=== PATIENT | male | born 1975 | race Caucasian/White ===

== ENCOUNTER 2016-11-16 16:40 | Emergency (ER) | payer SELFPAY ==
--- NOTE | 2016-11-16 18:20 | ED NURSING NOTES ---
Clinical Report - Nurses [facility] [address] [place] [address] 11/16/2016 16:43 Patient: ARI ALBERTO TRIAGE Triage time 16:50. Acuity: LEVEL 3. Chief Complaint: RIGHT LOWER TOOTHACHE. Alert. No acute distress. --16:54 Nanda Feldman R.N. 16:50 11/16/16. BP: 158/89. HR: 89. RR: 18. O2 saturation: 99%. Temp: 98.1 F. Pain level now: 01/25. --16:54 Nanda Feldman R.N. 16:50 11/16/16. BP: 158/89. HR: 89. RR: 18. O2 saturation: 99%. Temp: 98.1 F. Pain level now: 01/25. --16:54 Nanda Feldman R.N. Weight: 85.7 kg stated. Height/Length: 71 inches Per Patient. BMI: 26.4. --16:52 Nanda Feldman R.N. Medications None. --16:52 Nanda Feldman R.N. Medication/allergy information source: the patient. --16:54 Nanda Feldman R.N. Allergies PCN. --16:51 Nanda Feldman R.N. Amoxicillin. Keflex. --16:51 Nanda Feldman R.N. History Arrived by private vehicle. Historian: patient. No primary care physician. Onset. (3 - 4 days ago worse today). He has had facial pain. He has had swelling of the jaw. He has had mild swelling of the right face. 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 PAST MEDICAL HX: Negative. Immunizations: up-to-date. SURGERY HX: No history of previous surgery. SOCIAL HX: Light tobacco smoker (cigarette)- less than 1/2 a pack per day. No alcohol use or drug use. FALL RISK ASSESSMENT: Fall risk assessment completed. No fall risk identified. NUTRITIONAL RISK ASSESSMENT: The nutritional risk assessment revealed no deficiencies. FUNCTIONAL ASSESSMENT: Functional assessment: no impairments noted. LEARNING NEEDS ASSESSMENT: The learning needs assessment revealed no barriers. SKIN INTEGRITY ASSESSMENT: Skin integrity risk assessment completed. No skin integrity risk identified. --16:54 Nanda Feldman R.N. Interventions ID band on patient. To room. --16:54 Nanda Feldman R.N. PHYSICAL ASSESSMENT Ambulatory to room. GENERAL / NEURO / PSYCH: Alert. Oriented X 4. Appears in pain. HEENT: Dental tenderness. Mucous membranes are pink. RESPIRATORY: Respirations not labored. CVS: Capillary refill less than 2 seconds. SKIN: Skin is warm and dry. Normal skin turgor. --16:55 Nanda Feldman R.N. NURSING PROGRESS NOTES Head of bed elevated. Two patient identifiers checked. Call light placed in reach. Side rails up x 1. Bed placed in lowest position. Brakes of bed on. Patient ready for evaluation. --16:55 Nanda Feldman R.N. 17:27 11/16/2016 Toradol (Ketorolac Tromethamine) IM 60 mg given. Given in the left gluteus precious. Allergies verified and confirmed 5 rights. --17:42 Kimberly Chandra R.N. 17:27 11/16/2016 Morphine (Morphine Sulfate (PF)) IM 8 mg given. Given in the right gluteus precious. Allergies verified, confirmed 5 rights and sedative warning given to the patient. --17:42 Kimberly Chandra R.N. 18:19 11/16/2016 Acyclovir PO 800 mg given. Allergies verified and confirmed 5 rights. --18:34 Nanda Feldman R.N. 18:19 11/16/2016 Clindamycin PO 300 mg given. Allergies verified and confirmed 5 rights. --18:34 Nanda Feldman R.N. DISPOSITION / DISCHARGE 18:25. Condition at departure: improved. No learning barriers present. Discharge instructions provided and reviewed with the patient. Reviewed medication(s) side effects, precautions, dosing and course information. Prescription(s) given to the patient. Patient verbalized understanding. Written instructions provided in [place]. The patient was discharged home and accompanied by high speed printer operator. He left the Emergency Department ambulatory and via private vehicle. Seat Trimmer driving. Medication list reviewed and validated. --18:36 Nanda Feldman R.N. 18:34 11/16/16. BP: 156/78. HR: 79. RR: 20. O2 saturation: 98%. Temp: deferred. Pain level now: 10/25. 16:50 11/16/16. BP: 158/89. HR: 89. RR: 18. O2 saturation: 99%. Temp: 98.1 F. Pain level now: 01/25. --18:36 Nanda Feldman R.N. Locked/Released at 11/16/2016 18:39 by Nanda Feldman R.N.
--- NOTE | 2016-11-16 18:20 | ED CLINICAL REPORT ---
Clinical Report - Physicians/[facility] [address] [place] [address] 11/16/2016 16:43 Patient: ARI ALBERTO Time Seen: 1701. Arrived- By private vehicle. Historian- patient. HISTORY OF PRESENT ILLNESS Chief Complaint: SKIN RASH. This started past few days and is still present. It was abrupt in onset and has been constant but is not gone now. It is described as painful. It has been located on the right chin. A possible cause has been identified (shingles). (hx of chicken pox as a child. states he had a tooth ache first before this all started. no recent dental procedures.). Similar symptoms previously: None. Recent medical care: Not recently seen/assessed. REVIEW OF SYSTEMS No fever, chills or joint pain. All systems otherwise negative, except as recorded above. PAST HISTORY See nurses notes. Tetanus immunization status is up-to-date. SOCIAL HISTORY Smoker- current status unknown. No alcohol use or drug use. No recent travel. Is a local resident. ADDITIONAL NOTES The nursing notes have been reviewed. PHYSICAL EXAM Vital Signs: 11/16/2016 16:50 BP: 158/89. HR: 89. RR: 18. O2 saturation: 99%. Temp: 98.1 F. Pain level now: 9/10. Oxygen saturation normal. Appearance: Alert. Oriented X3. No acute distress. Eyes: Pupils equal, round and reactive to light. Conjunctivae and eyelids normal. ENT: Ears normal. Nose normal. Pharynx normal. Neck: Neck supple. No meningeal signs. CVS: Normal heart rate and rhythm. Heart sounds normal. Respiratory: No respiratory distress. Breath sounds normal. Chest nontender. Abdomen: Nontender. No organomegaly. Skin: (vescicular rash to the V3 dermatome. no masses. no other signs of infection. no crepitus.). Extremities: Normal external inspection. Extremities nontender. Neuro: Oriented X 3. No motor deficit. No sensory deficit. PROGRESS AND PROCEDURES Course of Care: the patient is a 41-year-old male presenting for evaluation of right-sided jaw pain. Patient likely with dental infection that has caused a flare up of the varicella-zoster. Patient be treated with antivirals. First is Margie Contreras provided here in the emergency department. Patient also be treated for dental caries. No signs of airway compromise at this time. Patient is stable outpatient candidat No signs of sepsis. Had discussion with the patient in regards to his workup in the emergency department including diagnosis, home care, follow-up, and return precautions. All questions have been answered. The patient expressed understanding of these instructions and was agreeable to them. Disposition: Discharged. Condition: good. CLINICAL IMPRESSION 11/16/2016 16:50 BP: 158/89. HR: 89. RR: 18. O2 saturation: 99%. Temp: 98.1 F. Pain level now: 01/25. Hypertensive. Oxygen saturation normal. Herpes zoster (acute). Dental caries (localized) (acute right mandibular molars). atypical right facial pain. INSTRUCTIONS Warnings: GENERAL WARNINGS: Return or contact your physician immediately if your condition worsens or changes unexpectedly, if not improving as expected, or if other problems arise. Specifically return if pain, vomiting, bleeding, breathing difficulty or fever. Your Current Medications: CONTINUE TAKING THE FOLLOWING MEDICATIONS: None*. Prescription Medications: Clindamycin 300 mg: take 1 capsule orally every 8 hours for 10 days. (disp 30 caps) Valtrex 1000 mg: take 1 tab orally every 8 hours for 7 days. No refills. Substitution is permissible. (disp 30 tabs) Percocet 5 mg/325 mg: take 1-2 tablets orally every 6 hours as needed for pain. Dispense twenty (20). No refill. Substitution is permissible. OTC Medications: Motrin (available over the counter): take according to label instructions. Follow-up: Return to the emergency department as needed. Follow up with a dentist in one week. Reason for referral: recheck today's concerns. Summary of care provided to patient via paper. Follow up with your doctor in three days. Reason for referral: recheck today's concerns. Summary of care provided to patient via paper. Screening today revealed the patient's blood pressure to be in the normal range. The patient should follow up with a primary care provider for blood pressure management. Understanding of the discharge instructions verbalized by patient. (Electronically signed by Venkata Lopez Dr. 11/18/2016 19:43)
--- NOTE | 2016-11-16 18:20 | ED NURSING NOTES ---
Clinical Report - Nurses [facility] [address] [place] [address] 11/16/2016 16:43 Patient: ARI ALBERTO TRIAGE Triage time 16:50. Acuity: LEVEL 3. Chief Complaint: RIGHT LOWER TOOTHACHE. Alert. No acute distress. --16:54 Nanda Feldman R.N. 16:50 11/16/16. BP: 158/89. HR: 89. RR: 18. O2 saturation: 99%. Temp: 98.1 F. Pain level now: 01/25. --16:54 Nanda Feldman R.N. 16:50 11/16/16. BP: 158/89. HR: 89. RR: 18. O2 saturation: 99%. Temp: 98.1 F. Pain level now: 01/25. --16:54 Nanda Feldman R.N. Weight: 85.7 kg stated. Height/Length: 71 inches Per Patient. BMI: 26.4. --16:52 Nanda Feldman R.N. Medications None. --16:52 Nanda Feldman R.N. Medication/allergy information source: the patient. --16:54 Nanda Feldman R.N. Allergies PCN. --16:51 Nanda Feldman R.N. Amoxicillin. Keflex. --16:51 Nanda Feldman R.N. History Arrived by private vehicle. Historian: patient. No primary care physician. Onset. (3 - 4 days ago worse today). He has had facial pain. He has had swelling of the jaw. He has had mild swelling of the right face. 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 PAST MEDICAL HX: Negative. Immunizations: up-to-date. SURGERY HX: No history of previous surgery. SOCIAL HX: Light tobacco smoker (cigarette)- less than 1/2 a pack per day. No alcohol use or drug use. FALL RISK ASSESSMENT: Fall risk assessment completed. No fall risk identified. NUTRITIONAL RISK ASSESSMENT: The nutritional risk assessment revealed no deficiencies. FUNCTIONAL ASSESSMENT: Functional assessment: no impairments noted. LEARNING NEEDS ASSESSMENT: The learning needs assessment revealed no barriers. SKIN INTEGRITY ASSESSMENT: Skin integrity risk assessment completed. No skin integrity risk identified. --16:54 Nanda Feldman R.N. Interventions ID band on patient. To room. --16:54 Nanda Feldman R.N. PHYSICAL ASSESSMENT Ambulatory to room. GENERAL / NEURO / PSYCH: Alert. Oriented X 4. Appears in pain. HEENT: Dental tenderness. Mucous membranes are pink. RESPIRATORY: Respirations not labored. CVS: Capillary refill less than 2 seconds. SKIN: Skin is warm and dry. Normal skin turgor. --16:55 Nanda Feldman R.N. NURSING PROGRESS NOTES Head of bed elevated. Two patient identifiers checked. Call light placed in reach. Side rails up x 1. Bed placed in lowest position. Brakes of bed on. Patient ready for evaluation. --16:55 Nanda Feldman R.N. 17:27 11/16/2016 Toradol (Ketorolac Tromethamine) IM 60 mg given. Given in the left gluteus precious. Allergies verified and confirmed 5 rights. --17:42 Kimberly Chandra R.N. 17:27 11/16/2016 Morphine (Morphine Sulfate (PF)) IM 8 mg given. Given in the right gluteus precious. Allergies verified, confirmed 5 rights and sedative warning given to the patient. --17:42 Kimberly Chandra R.N. 18:19 11/16/2016 Acyclovir PO 800 mg given. Allergies verified and confirmed 5 rights. --18:34 Nanda Feldman R.N. 18:19 11/16/2016 Clindamycin PO 300 mg given. Allergies verified and confirmed 5 rights. --18:34 Nanda Feldman R.N. DISPOSITION / DISCHARGE 18:25. Condition at departure: improved. No learning barriers present. Discharge instructions provided and reviewed with the patient. Reviewed medication(s) side effects, precautions, dosing and course information. Prescription(s) given to the patient. Patient verbalized understanding. Written instructions provided in [place]. The patient was discharged home and accompanied by drop hammer pile driver operator. He left the Emergency Department ambulatory and via private vehicle. Child Support Specialist driving. Medication list reviewed and validated. --18:36 Nanda Feldman R.N. 18:34 11/16/16. BP: 156/78. HR: 79. RR: 20. O2 saturation: 98%. Temp: deferred. Pain level now: 10/25. 16:50 11/16/16. BP: 158/89. HR: 89. RR: 18. O2 saturation: 99%. Temp: 98.1 F. Pain level now: 01/25. --18:36 Nanda Feldman R.N. Locked/Released at 11/16/2016 18:39 by Nanda Feldman R.N.
--- NOTE | 2016-11-16 18:21 | ED ORDER SUMMARY ---
..... Patient: ARI ALBERTO OrderSheet [facility] VisitID: [id number] [place] [address] 41y, M Registration Date/Time: 11/16/2016 ORDER SHEET Weight: 85.7 kg (stated) Allergies: PCN, Amoxicillin, Keflex GENERAL ORDERS: MEDICATION ORDERS: Toradol IM 60 mg (NOW) (17:10 11/16/2016 Mellissa Nagy) (17:42 Kemal R.N.) Morphine IM 8 mg (HIGH ALERT MEDICATION, NOW) (17:10 11/16/2016 Mellissa Nagy) (17:42 Kemal R.N.) Acyclovir PO 800 mg (NOW) (18:15 11/16/2016 Mellissa Nagy) (Ack 18:19 SRoberts R.N.) (18:34 SRoberts R.N.) Clindamycin PO 300 mg (NOW) (18:15 11/16/2016 Mellissa Nagy) (Ack 18:19 SRoberts R.N.) (18:34 SRoberts R.N.) IV FLUIDS: ORDER SHEET NOTES: [Electronically signed by Nanda Feldman R.N. (18:39 11/16/2016)] [Electronically signed by Venkata Lopez Dr. (19:43 11/18/2016)] [Electronically locked/signed by Nanda Feldman R.N. (18:39 11/16/2016)]
--- NOTE | 2016-11-16 18:21 | ED ORDER SUMMARY ---
..... Patient: ARI ALBERTO OrderSheet [facility] VisitID: [id number] [place] [address] 41y, M Registration Date/Time: 11/16/2016 ORDER SHEET Weight: 85.7 kg (stated) Allergies: PCN, Amoxicillin, Keflex GENERAL ORDERS: MEDICATION ORDERS: Toradol IM 60 mg (NOW) (17:10 11/16/2016 Mellissa Nagy) (17:42 Kemal R.N.) Morphine IM 8 mg (HIGH ALERT MEDICATION, NOW) (17:10 11/16/2016 Mellissa Nagy) (17:42 Kemal R.N.) Acyclovir PO 800 mg (NOW) (18:15 11/16/2016 Mellissa Nagy) (Ack 18:19 SRoberts R.N.) (18:34 SRoberts R.N.) Clindamycin PO 300 mg (NOW) (18:15 11/16/2016 Mellissa Nagy) (Ack 18:19 SRoberts R.N.) (18:34 SRoberts R.N.) IV FLUIDS: ORDER SHEET NOTES: [Electronically signed by Nanda Feldman R.N. (18:39 11/16/2016)] [Electronically signed by Venkata Lopez Dr. (19:43 11/18/2016)] [Electronically locked/signed by Nanda Feldman R.N. (18:39 11/16/2016)]
--- NOTE | 2016-11-18 19:43 | ED MED RECONCILIATION SUMMARY ---
Patient: ARI ALBERTO Medication Reconciliation Report [facility] VisitID: [id number] [place] [address] 41y, M Registration Date/Time: 11/16/2016 Weight: 85.7 kg Height/Length: 71 in. BMI: 26.4 ALLERGIES: Amoxicillin, Keflex, PCN The patient's Home Medications are listed below: NONE. The source(s) of the original Home Medication information: patient The following Medications were given to the patient in the Emergency Department: Toradol [IM] IM 60 mg, administered: 11/16/2016 5:27:00 PM Morphine [IM] IM 8 mg, administered: 11/16/2016 5:27:00 PM Acyclovir [PO] PO 800 mg, administered: 11/16/2016 6:19:00 PM Clindamycin [PO] PO 300 mg, administered: 11/16/2016 6:19:00 PM The following Medications were prescribed to the patient: Motrin (available over the counter): take according to label instructions. -- Venkata Lopez Dr. Clindamycin 300 mg: take 1 capsule orally every 8 hours for 10 days.(disp 30 caps) -- Venkata Lopez Dr. Valtrex 1000 mg: take 1 tab orally every 8 hours for 7 days. No refills. Substitution is permissible.(disp 30 tabs) -- Venkata Lopez Dr. Percocet 5 mg/325 mg: take 1-2 tablets orally every 6 hours as needed for pain. Dispense twenty (20). No refill. Substitution is permissible. -- Venkata Lopez Dr.
--- NOTE | 2016-11-18 19:43 | ED MAR SUMMARY ---
..... Medication Administration Record [facility] [address] [place] [address] Patient: ARI ALBERTO Visit ID: [id number] 41y, M Weight: 85.7 kg Height/Length: 71 in BMI: 26.4 ALLERGIES: Amoxicillin, Keflex, PCN Given 11/16/2016 Kimberly Chandra R.N. Medication Administered: TORADOL [IM] (KETOROLAC TROMETHAMINE), Dose: 60 mg IM. Medication Ordered: Toradol IM 60 mg (NOW). Given :11/16/2016 Kimberly Chandra R.N. Medication Administered: MORPHINE [IM] (MORPHINE SULFATE (PF)), Dose: 8 mg IM. Medication Ordered: Morphine IM 8 mg (HIGH ALERT MEDICATION, NOW). Given 18:11/16/2016 Nanda Feldman R.N. Medication Administered: ACYCLOVIR [PO], Dose: 800 mg PO. Medication Ordered: Acyclovir PO 800 mg (NOW). Given 18:11/16/2016 Nanda Feldman R.N. Medication Administered: CLINDAMYCIN [PO], Dose: 300 mg PO. Medication Ordered: Clindamycin PO 300 mg (NOW).
--- NOTE | 2016-11-18 19:43 | ED DISCHARGE INSTRUCTIONS ---
Patient: ARI ALBERTO General Instructions [facility] VisitID: [id number] [place] [address] 41y, M Registration Date/Time: 11/16/2016 11/16/2016 16:50 BP: 158/89. HR: 89. RR: 18. O2 saturation: 99%. Temp: 98.1 F. Pain level now: 01/25. Hypertensive. Oxygen saturation normal. Herpes zoster (acute). Dental caries (localized) (acute right mandibular molars). atypical right facial pain. INSTRUCTIONS Warnings: GENERAL WARNINGS: Return or contact your physician immediately if your condition worsens or changes unexpectedly, if not improving as expected, or if other problems arise. Specifically return if pain, vomiting, bleeding, breathing difficulty or fever. Your Current Medications: CONTINUE TAKING THE FOLLOWING MEDICATIONS: None*. Prescription Medications: Clindamycin 300 mg: take 1 capsule orally every 8 hours for 10 days. (disp 30 caps) Valtrex 1000 mg: take 1 tab orally every 8 hours for 7 days. No refills. Substitution is permissible. (disp 30 tabs) Percocet 5 mg/325 mg: take 1-2 tablets orally every 6 hours as needed for pain. Dispense twenty (20). No refill. Substitution is permissible. OTC Medications: Motrin (available over the counter): take according to label instructions. Follow-up: Return to the emergency department as needed. Follow up with a dentist in one week. Reason for referral: recheck today's concerns. Summary of care provided to patient via paper. Follow up with your doctor in three days. Reason for referral: recheck today's concerns. Summary of care provided to patient via paper. Screening today revealed the patient's blood pressure to be in the normal range. The patient should follow up with a primary care provider for blood pressure management. Understanding of the discharge instructions verbalized by patient. ADDITIONAL INFORMATION Shingles Anyone who has had chicken pox may get shingles later in life. It is caused by the same virus that has remained dormant (asleep) in your body. Shingles usually occurs in adults over the age of 50 or those with lowered immunity (cancer treatment, prolonged steroid use, HIV or AIDS). It starts as a tingling patch of skin on one side of the body. During the first several days small painful blisters appear in this area. However, unlike chicken pox the rash does not spread to the rest of the body. The blister fluid contains the virus. Exposure to shingles cannot cause shingles. However, it can cause chicken pox in anyone who has never had chicken pox before. The contagious period ends when all blisters have crusted over (usually about two weeks after the illness begins). Scarring may occur where the blisters appear. Sometimes there is continued sensitivity and pain in the involved patch of skin for months after the infection (neuralgia). Persons older than 50 or those with a weakened immune system may be treated with antiviral medicines to reduce pain, shorten the illness and prevent neuralgia. Zostavax is a vaccine that can help prevent shingles or make it less painful. It is recommended for adults over the age of 60 who have had chicken pox in the past, but not shingles. Adults over 60 who have had neither chicken pox nor shingles can prevent both diseases with a Varicella vaccine. Home Care: You may use acetaminophen (Tylenol) or ibuprofen (Motrin, Advil) to control pain, unless another medicine was prescribed. [NOTE: If you have chronic liver or kidney disease or ever had a stomach ulcer or GI bleeding, talk with your doctor before using these medicines.] (Aspirin should never be used in anyone under 18 years of age who is ill with a fever. It may cause severe liver damage.) To relieve itching and pain, make a solution of cool water mixed with cornstarch, baking soda, Aveeno Oatmeal, or Domeboro powder (available without a prescription). Apply the solution as a compress to the area. This will soothe the skin. Calamine or Caladryl lotion may help. Oral Benadryl (diphenhydramine) is an antihistamine available at drug and grocery stores. Unless a prescription antihistamine was given, Benadryl may be used to reduce itching if large areas of the skin are involved. Use lower doses during the daytime and higher doses at bedtime since the drug may make you sleepy. [NOTE: Do not use Benadryl if you have glaucoma or if you are a man with trouble urinating due to an enlarged prostate.] Claritin (loratidine) is an antihistamine that causes less drowsiness and is a good alternative for daytime use. Wash skin with soap and water to keep rash free of infection. Trim fingernails to prevent scratching. Scratching the sores may leave scars. Stay home from work or school until all blisters have formed a crust and you are no longer contagious. Follow Up with your doctor or as directed by our staff if the above measures do not bring relief. GET PROMPT MEDICAL ATTENTION if any of the following occur: Headache or stiff neck Increasing drowsiness, confusion or bizarre behavior Cough with trouble breathing or fast breathing (over 25 breaths per minute) Pain, redness or swelling of a joint Fever of 100.4F (38C) or higher, or as directed by your healthcare provider Eye pain or changes in vision or sores that appear near the eye Signs of skin infection (yellow or white drainage from the sores, increasing redness or pain) Weakness or numbness of an arm or leg Difficulty speaking, swallowing or walking Seizure Dental Cavity A dental cavity is a pit or crater in the enamel surface of the tooth. This exposes the sensitive inner layer of the tooth and causes pain. If untreated, the cavity will get bigger and may cause an infection or abscess in the root of the tooth. An infection in the tooth is a much more serious problem and may require a root canal or removal of the entire tooth. The tooth pain may be made worse by drinking hot or cold fluids. It may spread from the tooth to the ear or jaw on the same side. Home Care: Avoid hot and cold foods, and liquids since your tooth may be sensitive to temperature changes. If your tooth is chipped or cracked, or if there is a large open cavity, apply OIL OF CLOVES (available [id number] in drug stores) directly to the tooth to reduce pain. Some pharmacies carry an [id number] "toothache kit." This contains oil of cloves and a paste, which can be applied over the exposed tooth to decrease sensitivity. An ice pack on your jaw over the sore area may help to reduce pain. You may use acetaminophen (Tylenol) or ibuprofen (Motrin, Advil) to control pain, unless another pain medicine was prescribed. [ NOTE: If you have liver disease or ever had a stomach ulcer, talk with your doctor before using these medicines.] If you have signs of an infection, an antibiotic will be given. Take it as directed. Follow-Up with your dentist as directed. Although your pain may go away with the treatment given, only a dentist can fully evaluate and treat this problem to prevent further tooth damage. Get Prompt Medical Attention if any of the following occur: Redness or swelling of the face Pain worsens or spreads to the neck Fever over 100.5 F (38C) Unusual drowsiness; headache or stiff neck; weakness or fainting Pus drains from the tooth or gum Difficulty swallowing or breathing Clindamycin Hydrochloride Oral capsule What is this medicine? CLINDAMYCIN (KLIN da ROCCO sin) is a lincosamide antibiotic. It is used to treat certain kinds of bacterial infections. It will not work for colds, flu, or other viral infections. How should I use this medicine? Take this medicine by mouth with a full glass of water. Follow the directions on the prescription label. You can take this medicine with food or on an empty stomach. If the medicine upsets your stomach, take it with food. Take your medicine at regular intervals. Do not take your medicine more often than directed. Take all of your medicine as directed even if you think your are better. Do not skip doses or stop your medicine early. Talk to your souvenir assembler regarding the use of this medicine in children. Special care may be needed. What side effects may I notice from receiving this medicine? Side effects that you should report to your doctor or health clinical care leader as soon as possible: allergic reactions like skin rash, itching or hives, swelling of the face, lips, or tongue dark urine pain on swallowing redness, blistering, peeling or loosening of the skin, including inside the mouth unusual bleeding or bruising unusually weak or tired yellowing of eyes or skin Side effects that usually do not require medical attention (report to your doctor or health clinical care leader if they continue or are bothersome): diarrhea itching in the rectal or genital area joint pain nausea, vomiting stomach pain What may interact with this medicine? chloramphenicol erythromycin kaolin products What if I miss a dose? If you miss a dose, take it as soon as you can. If it is almost time for your next dose, take only that dose. Do not take double or extra doses. Where should I keep my medicine? Keep out of the reach of children. Store at room temperature between 20 and 25 degrees C (68 and 77 degrees F). Throw away any unused medicine after the expiration date. What should I tell my health care provider before I take this medicine? They need to know if you have any of these conditions: kidney disease liver disease stomach problems like colitis an unusual or allergic reaction to clindamycin, lincomycin, or other medicines, foods, dyes like tartrazine or preservatives or trying to get breast-feeding What should I watch for while using this medicine? Tell your doctor or healthcare professional if your symptoms do not start to get better or if they get worse. Do not treat diarrhea with over the counter products. Contact your doctor if you have diarrhea that lasts more than 2 days or if it is severe and watery. Valacyclovir Hydrochloride Oral tablet What is this medicine? VALACYCLOVIR (mic ay SYE kloe veer) is an antiviral medicine. It is used to treat or prevent infections caused by certain kinds of viruses. Examples of these infections include herpes and shingles. This medicine will not cure herpes. How should I use this medicine? Take this medicine by mouth with a glass of water. Follow the directions on the prescription label. You can take this medicine with or without food. Take your doses at regular intervals. Do not take your medicine more often than directed. Finish the full course prescribed by your doctor or health clinical care leader even if you think your condition is better. Do not stop taking except on the advice of your doctor or health clinical care leader. Talk to your souvenir assembler regarding the use of this medicine in children. While this drug may be prescribed for children as young as 2 years for selected conditions, precautions do apply. What side effects may I notice from receiving this medicine? Side effects that you should report to your doctor or health clinical care leader as soon as possible: allergic reactions like skin rash, itching or hives, swelling of the face, lips, or tongue aggressive behavior confusion hallucinations problems with balance, talking, walking stomach pain tremor trouble passing urine or change in the amount of urine Side effects that usually do not require medical attention (report to your doctor or health clinical care leader if they continue or are bothersome): dizziness headache nausea, vomiting What may interact with this medicine? cimetidine probenecid What if I miss a dose? If you miss a dose, take it as soon as you can. If it is almost time for your next dose, take only that dose. Do not take double or extra doses. Where should I keep my medicine? Keep out of the reach of children. Store at room temperature between 15 and 25 degrees C (59 and 77 degrees F). Keep container tightly closed. Throw away any unused medicine after the expiration date. What should I tell my health care provider before I take this medicine? They need to know if you have any of these conditions: acquired immunodeficiency syndrome (AIDS) any other condition that may weaken the immune system bone marrow or kidney transplant kidney disease an unusual or allergic reaction to valacyclovir, acyclovir, ganciclovir, valganciclovir, other medicines, foods, dyes, or preservatives or trying to get breast-feeding What should I watch for while using this medicine? Tell your doctor or health clinical care leader if your symptoms do not start to get better after 1 week. This medicine works best when taken early in the course of an infection, within the first 72 hours. Begin treatment as soon as possible after the first signs of infection like tingling, itching, or pain in the affected area. It is possible that genital herpes may still be spread even when you are not having symptoms. Always use safer sex practices like condoms made of latex or polyurethane whenever you have sexual contact. You should stay well hydrated while taking this medicine. Drink plenty of fluids. Oxycodone Hydrochloride, Acetaminophen Oral tablet What is this medicine? ACETAMINOPHEN; OXYCODONE (a set a CHARLENE amy fen; ox i KOE done) is a pain reliever. It is used to treat mild to moderate pain. How should I use this medicine? Take this medicine by mouth with a full glass of water. Follow the directions on the prescription label. Take your medicine at regular intervals. Do not take your medicine more often than directed. Talk to your souvenir assembler regarding the use of this medicine in children. Special care may be needed. Patients over 65 years old may have a stronger reaction and need a smaller dose. What side effects may I notice from receiving this medicine? Side effects that you should report to your doctor or health clinical care leader as soon as possible: allergic reactions like skin rash, itching or hives, swelling of the face, lips, or tongue breathing difficulties, wheezing confusion light headedness or fainting spells severe stomach pain yellowing of the skin or the whites of the eyes Side effects that usually do not require medical attention (report to your doctor or health clinical care leader if they continue or are bothersome): dizziness drowsiness nausea vomiting What may interact with this medicine? alcohol antihistamines barbiturates like amobarbital, butalbital, butabarbital, methohexital, pentobarbital, phenobarbital, thiopental, and secobarbital benztropine drugs for bladder problems like solifenacin, trospium, oxybutynin, tolterodine, hyoscyamine, and methscopolamine drugs for breathing problems like ipratropium and tiotropium drugs for certain stomach or intestine problems like propantheline, homatropine methylbromide, glycopyrrolate, atropine, belladonna, and dicyclomine general anesthetics like etomidate, ketamine, nitrous oxide, propofol, desflurane, enflurane, halothane, isoflurane, and sevoflurane medicines for depression, anxiety, or psychotic disturbances medicines for sleep muscle relaxants naltrexone narcotic medicines (opiates) for pain phenothiazines like perphenazine, thioridazine, chlorpromazine, mesoridazine, fluphenazine, prochlorperazine, promazine, and trifluoperazine scopolamine tramadol trihexyphenidyl What if I miss a dose? If you miss a dose, take it as soon as you can. If it is almost time for your next dose, take only that dose. Do not take double or extra doses. Where should I keep my medicine? Keep out of the reach of children. This medicine can be abused. Keep your medicine in a safe place to protect it from theft. Do not share this medicine with anyone. Selling or giving away this medicine is dangerous and against the law. Store at room temperature between 20 and 25 degrees C (68 and 77 degrees F). Keep container tightly closed. Protect from light. This medicine may cause accidental overdose and if it is taken by other adults, children, or pets. Flush any unused medicine down the toilet to reduce the chance of harm. Do not use the medicine after the expiration date. What should I tell my health care provider before I take this medicine? They need to know if you have any of these conditions: brain tumor Crohn's disease, inflammatory bowel disease, or ulcerative colitis drink more than 3 alcohol containing drinks per day drug abuse or addiction head injury heart or circulation problems kidney disease or problems going to the bathroom liver disease lung disease, asthma, or breathing problems an unusual or allergic reaction to acetaminophen, oxycodone, other opioid analgesics, other medicines, foods, dyes, or preservatives or trying to get breast-feeding What should I watch for while using this medicine? Tell your doctor or health clinical care leader if your pain does not go away, if it gets worse, or if you have new or a different type of pain. You may develop tolerance to the medicine. Tolerance means that you will need a higher dose of the medication for pain relief. Tolerance is normal and is expected if you take this medicine for a long time. Do not suddenly stop taking your medicine because you may develop a severe reaction. Your body becomes used to the medicine. This does NOT mean you are addicted. Addiction is a behavior related to getting and using a drug for a non-medical reason. If you have pain, you have a medical reason to take pain medicine. Your doctor will tell you how much medicine to take. If your doctor wants you to stop the medicine, the dose will be slowly lowered over time to avoid any side effects. You may get drowsy or dizzy. Do not drive, use machinery, or do anything that needs mental alertness until you know how this medicine affects you. Do not stand or sit up quickly, especially if you are an older patient. This reduces the risk of dizzy or fainting spells. Alcohol may interfere with the effect of this medicine. Avoid alcoholic drinks. There are different types of narcotic medicines (opiates) for pain. If you take more than one type at the same time, you may have more side effects. Give your health care provider a list of all medicines you use. Your doctor will tell you how much medicine to take. Do not take more medicine than directed. Call emergency for help if you have problems breathing. The medicine will cause constipation. Try to have a bowel movement at least every 2 to 3 days. If you do not have a bowel movement for 3 days, call your doctor or health clinical care leader. Do not take Tylenol (acetaminophen) or medicines that have acetaminophen with this medicine. Too much acetaminophen can be very dangerous. Many nonprescription medicines contain acetaminophen. Always read the labels carefully to avoid taking more acetaminophen. You have been given the following additional information: Herpes Zoster Dental Cavity Clindamycin Hydrochloride Oral capsule Valacyclovir Hydrochloride Oral tablet Oxycodone Hydrochloride, Acetaminophen Oral tablet (Electronically signed by Venkata Lopez Dr. 11/18/2016 19:43)
--- NOTE | 2016-11-18 19:43 | ED MED RECONCILIATION SUMMARY ---
Patient: ARI ALBERTO Medication Reconciliation Report [facility] VisitID: [id number] [place] [address] 41y, M Registration Date/Time: 11/16/2016 Weight: 85.7 kg Height/Length: 71 in. BMI: 26.4 ALLERGIES: Amoxicillin, Keflex, PCN The patient's Home Medications are listed below: NONE. The source(s) of the original Home Medication information: patient The following Medications were given to the patient in the Emergency Department: Toradol [IM] IM 60 mg, administered: 11/16/2016 5:27:00 PM Morphine [IM] IM 8 mg, administered: 11/16/2016 5:27:00 PM Acyclovir [PO] PO 800 mg, administered: 11/16/2016 6:19:00 PM Clindamycin [PO] PO 300 mg, administered: 11/16/2016 6:19:00 PM The following Medications were prescribed to the patient: Motrin (available over the counter): take according to label instructions. -- Venkata Lopez Dr. Clindamycin 300 mg: take 1 capsule orally every 8 hours for 10 days.(disp 30 caps) -- Venkata Lopez Dr. Valtrex 1000 mg: take 1 tab orally every 8 hours for 7 days. No refills. Substitution is permissible.(disp 30 tabs) -- Venkata Lopez Dr. Percocet 5 mg/325 mg: take 1-2 tablets orally every 6 hours as needed for pain. Dispense twenty (20). No refill. Substitution is permissible. -- Venkata Lopez Dr.
--- NOTE | 2016-11-18 19:43 | ED MAR SUMMARY ---
..... Medication Administration Record [facility] [address] [place] [address] Patient: ARI ALBERTO Visit ID: [id number] 41y, M Weight: 85.7 kg Height/Length: 71 in BMI: 26.4 ALLERGIES: Amoxicillin, Keflex, PCN Given 11/16/2016 Kimberly Chandra R.N. Medication Administered: TORADOL [IM] (KETOROLAC TROMETHAMINE), Dose: 60 mg IM. Medication Ordered: Toradol IM 60 mg (NOW). Given :11/16/2016 Kimberly Chandra R.N. Medication Administered: MORPHINE [IM] (MORPHINE SULFATE (PF)), Dose: 8 mg IM. Medication Ordered: Morphine IM 8 mg (HIGH ALERT MEDICATION, NOW). Given 18:11/16/2016 Nanda Feldman R.N. Medication Administered: ACYCLOVIR [PO], Dose: 800 mg PO. Medication Ordered: Acyclovir PO 800 mg (NOW). Given 18:11/16/2016 Nanda Feldman R.N. Medication Administered: CLINDAMYCIN [PO], Dose: 300 mg PO. Medication Ordered: Clindamycin PO 300 mg (NOW).
== END 2016-11-16 18:25 | disposition home or self-care (01) ==
LOC: ED SRH 16:40
DX: B02.9 Zoster without complications (principal); K02.9 Dental caries, unspecified; G50.1 Atypical facial pain